=== PATIENT | male | born 1955 ===

== ENCOUNTER 2025-03-19 10:30 | Outpatient (AMB) | payer MEDICARE, SELFPAY | END 2025-03-19 10:33 | disposition home or self-care (01) | LOC: HO.HMGAL 10:30 | PROVIDERS: PCP Internal Medicine; Visit Provider Registered Nurse Emergency | DX: J30.89 Other allergic rhinitis (principal) | CPT/HCPCS: 95117; 95165 ==

== ENCOUNTER 2025-04-28 13:54 | Outpatient (AMB) | payer MEDICARE, SELFPAY | END 2025-04-28 13:55 | disposition home or self-care (01) | LOC: HO.HMGAL 13:54 | PROVIDERS: PCP Internal Medicine; Visit Provider Registered Nurse Emergency | DX: J30.89 Other allergic rhinitis (principal) | CPT/HCPCS: 95117; 95165 ==

== ENCOUNTER 2025-05-28 11:11 | Outpatient (AMB) | payer MEDICARE, SELFPAY | END 2025-05-28 11:11 | disposition home or self-care (01) | LOC: HO.HMGAL 11:11 | PROVIDERS: PCP Internal Medicine; Visit Provider Registered Nurse Emergency | DX: J30.89 Other allergic rhinitis (principal) | CPT/HCPCS: 95117; 95165 ==

== ENCOUNTER 2025-06-25 13:21 | Outpatient (AMB) | payer MEDICARE, SELFPAY | END 2025-06-25 13:22 | disposition home or self-care (01) | LOC: HO.HMGAL 13:21 | PROVIDERS: PCP Internal Medicine; Visit Provider Registered Nurse Emergency | DX: J30.89 Other allergic rhinitis (principal) | CPT/HCPCS: 95117; 95165 ==

== ENCOUNTER 2025-07-23 10:46 | Outpatient (AMB) | payer MEDICARE, SELFPAY | END 2025-07-23 10:46 | disposition home or self-care (01) | LOC: HO.HMGAL 10:46 | PROVIDERS: PCP Internal Medicine; Visit Provider Registered Nurse Emergency | DX: J30.89 Other allergic rhinitis (principal) | CPT/HCPCS: 95117; 95165 ==